=== PATIENT | male | born 1990 | race Caucasian/White ===

== ENCOUNTER 2019-02-26 11:37 | Emergency (ER) | payer OTHER ==
[~2019-02-26] VITALS: Ht 185.4 cm; Wt 81.8 kg
[2019-02-26 11:54] VITALS: BP 129/84
--- NOTE | 2019-02-26 12:46 | NUR ---
Dr. Miranda is evaluating the patient at bedside.
[2019-02-26 14:07] VITALS: BP 129/84
--- NOTE | 2019-02-26 14:09 | NUR ---
Patient discharged with v/s stable. Written and verbal after care instructions given and explained. Patient verbalized understanding. Ambulatory with steady gait. All questions addressed prior to discharge. Advised to follow up with PMD.
== END 2019-02-26 14:08 | disposition home or self-care (01) ==
LOC: MED 11:37
DX: S92.101A Unspecified fracture of right talus, initial encounter for closed fracture (principal); X58.XXXA Exposure to other specified factors, initial encounter; Y92.89 Other specified places as the place of occurrence of the external cause; Y93.89 Activity, other specified; Y99.8 Other external cause status
CPT/HCPCS: 73630; 99283; Q0092